=== PATIENT | male | born 1970 ===

== ENCOUNTER 2025-03-20 12:03 | Outpatient (CLI) | payer OTHER, SELFPAY ==
--- NOTE | 2025-03-20 12:09 | US_ITS ---
WS: [id number] ULTRASOUND GUIDED BIOPSY RIGHT AXILLARY LYMPH NODES. HISTORY: LOW DENSITY LESIONS IN THE R AXILLA Procedure, risks, and complications are explained to the patient. Consent was obtained. Skin is cleansed with ChloraPrep and anesthetized with 1% buffered lidocaine. Low-attenuation masses in the RIGHT axilla are probably lymph nodes. These were noted on a CT from 12/27/2024. Lymph nodes in the RIGHT axilla are localized. These are cystic lymph nodes. Several lymph nodes are identified. Largest lymph node measures 3.7 x 1.6 cm. Loss of the normal fatty hilum. Cortical thickening. Multiple core biopsies were performed with an 18-gauge achieve needle. Specimen is placed in both formalin and RPMI. No complications were encountered. US/US biopsy lymph node [id number] IMPRESSION: Uncomplicated core biopsy of RIGHT axillary lymph nodes. Cystic appearing lymph nodes are noted in a small cluster. Specimen collected in RPMI and formalin.
[2025-03-21 14:28] LABS: Lymphoma Profile (BBPL) See Report
== END 2025-03-20 12:04 | disposition home or self-care (01) ==
LOC: RAD 12:05
PROVIDERS: PCP Family Medicine; Visit Provider Family Medicine
DX: R22.31 Localized swelling, mass and lump, right upper limb (principal)
CPT/HCPCS: 38505; 76942; 88184; 88185; 88305